=== PATIENT | female | born 1975 | race Caucasian/White ===

== ENCOUNTER 2018-12-22 18:33 | Emergency (ER) | payer MEDICARE, OTHER, SELFPAY ==
[2018-12-22 18:40] VITALS: BP 109/68; PULSE 71; RESP 18; TEMP 36.6; O2SAT 97
--- NOTE | 2018-12-22 18:58 | W.ED.GENAD ---
Discharge Plan Disposition Patient Disposition: HOME Condition: Stable Discharge Details Chief Complaint: FacialProb Clinical Impression: Acute maxillary sinusitis Primary Care Provider: None,None ED Provider: Vinnie Keane Home Meds and New Rx's Prescriptions: New doxycycline hyclate 100 mg capsule 100 mg PO BID 10 Days Qty: 20 RF: 0 Continued rabeprazole [Aciphex] 20 MG tablet,delayed release (DR/EC) 20 mg PO BID Qty: 180 RF: 3 citalopram 20 MG tablet 20 mg PO DAILY Qty: 60 RF: 6 diphenhydramine HCl [Benadryl] 25 mg Capsule 25 mg PO HS RF: 0 vitamin B complex [B Complex 1] Tablet 1 tab PO DAILY RF: 0 Discharge Instructions Instructions: Sinusitis (ED) Additional Instructions: Our care management team will assist you in establishing local primary care. Take antibiotics as prescribed. Do not take at the same time as control/oral contraceptive Return for any acute concerns. May use Tylenol and/or ibuprofen as needed for discomfort. Continue all regular medications Medical Decision Making 43-year-old female states she has a long history of sinus infections for which she has seen otolaryngology in the past and had sinus surgery performed. She is here today with one-week history of bilateral anterior facial pain and pressure with postnasal drip. She is afebrile and well-appearing. Her exam is reassuring. Is consistent with acute sinusitis. I discussed with her that she may have some chronic underlying rhinosinusitis at will minimally respond to antibiotics but there does appear to be significant and acute component. She is here for a number of months while her is away in the service and does not have a local primary care physician. We will ask care management to assist her in setting up a local PMD. Will treat with a course of doxycycline given her allergy profile. HPI General Mode of arrival: ambulatory. Date/Time Provider Initiated Documentation: 12/22/18 18:33. Limitations to Documentation: no limitations. Information obtained by: patient. History of Present Illness 43 year old F presents to the emergency department with the chief complaint of Bilateral sinus pain and pressure with drainage. History of sinus infectio, described as moderate, Quality is described as dull and constant, and is localized to the face. Patient reports no radiation. Patient started experiencing this day(s) and it has been constant. No exacerbating factors reported . Patient notes other (Post nasal drip). Patient did receive the following treatments prior to arrival, none Related Data Home Medications Medication Instructions Recorded Confirmed citalopram 20 mg PO DAILY #60 tab-cap 07/09/15 12/22/18 rabeprazole [Aciphex] 20 mg PO BID #180 tab-cap 07/09/15 12/22/18 diphenhydramine HCl [Benadryl] 25 mg PO HS 12/22/18 12/22/18 doxycycline hyclate 100 mg PO BID 10 Days #20 cap 12/22/18 vitamin B complex [B Complex 1] 1 tab PO DAILY 12/22/18 12/22/18 Previous Rx's Medication Instructions Recorded doxycycline hyclate 100 mg PO BID 10 Days #20 cap 12/22/18 Allergies Allergy/AdvReac Type Severity Reaction Status Date / Time Penicillins Allergy Unverified 12/22/18 18:44 General Stated Complaint: FacialProb STEVE: 4 Review of Systems Review of Systems No fall or trauma, no change to vision. 6 Systems reviewed and otherwise - [facility] Medical History Anemia Chronic endometritis Depression Menorrhagia, premenopausal Secondary female infertility Surgical History Dilation and curettage (05/29/14) Ligation of fallopian tube Family History Mother Essential hypertension Father Retinitis pigmentosa Warner's esophagus Hiatal hernia Sister No problems noted. Brother Retinitis pigmentosa Brother Retinitis pigmentosa Brother No problems noted. Social History Smoking/Tobacco Use Status: Never Drug use: Never Do you feel safe at home: Yes Do you feel safe in your relationship?: Yes Exam Narrative Exam Narrative: GEN: awake, alert, oriented 3. Pleasant, well groomed, interactive. HEAD: Normocephalic, atraumatic ENT: Mucous membranes moist, oropharynx unremarkable, External ear exam unremarkable. Tympanic membranes clear bilaterally. Bilateral maxillary sinus tenderness to percussion EYES: PERRL, EOMI NECK: Full ROM, no MAXWELL, no menigismus CHEST/RESP: Nontender, clear to auscultation bilateral, no wheeze/rhonchi/rales CARDIOVASCULAR: RRR, no murmur, rub celia. 2+ Rad pulse bilateral ABDOMEN: Soft, nontender, no mass. +Bowel sounds EXT: Full ROM, no edema, no rash Neuro: Grossly normal neurologic exam, conversant, interactive. Psych: Speech fluent, thoughts congruent, affect normal Course Vital Signs Temperature 36.6 C 12/22/18 18:40 Pulse 71 12/22/18 18:40 Respiratory Rate 18 12/22/18 18:40 Blood Pressure 109/68 12/22/18 18:40 Pulse Oximetry 97 12/22/18 18:40 Temperature 36.6 C 12/22/18 18:40 Temperature Source Temporal Artery Scan 12/22/18 18:40 Pulse 71 12/22/18 18:40 Respiratory Rate 18 12/22/18 18:40 Respiratory Effort Non-Labored 12/22/18 18:40 Blood Pressure 109/68 12/22/18 18:40 Pulse Oximetry 97 12/22/18 18:40 Oxygen Delivery Method Room Air 12/22/18 18:40 Oxygen Flow Rate 0 12/22/18 18:40 Pain Level 8 12/22/18 18:51
--- NOTE | 2018-12-22 19:02 | ED.GENADUL_ITS ---
Discharge Plan Disposition Patient Disposition: HOME Condition: Stable Discharge Details Chief Complaint: FacialProb Clinical Impression: Acute maxillary sinusitis Primary Care Provider: None,None ED Provider: Vinnie Keane Home Meds and New Rx's Prescriptions: New doxycycline hyclate 100 mg capsule 100 mg PO BID 10 Days Qty: 20 RF: 0 Continued rabeprazole [Aciphex] 20 MG tablet,delayed release (DR/EC) 20 mg PO BID Qty: 180 RF: 3 citalopram 20 MG tablet 20 mg PO DAILY Qty: 60 RF: 6 diphenhydramine HCl [Benadryl] 25 mg Capsule 25 mg PO HS RF: 0 vitamin B complex [B Complex 1] Tablet 1 tab PO DAILY RF: 0 Discharge Instructions Instructions: Sinusitis (ED) Additional Instructions: Our care management team will assist you in establishing local primary care. Take antibiotics as prescribed. Do not take at the same time as control/oral contraceptive Return for any acute concerns. May use Tylenol and/or ibuprofen as needed for discomfort. Continue all regular medications Medical Decision Making 43-year-old female states she has a long history of sinus infections for which she has seen otolaryngology in the past and had sinus surgery performed. She is here today with one-week history of bilateral anterior facial pain and pressure with postnasal drip. She is afebrile and well-appearing. Her exam is reassuring. Is consistent with acute sinusitis. I discussed with her that she may have some chronic underlying rhinosinusitis at will minimally respond to antibiotics but there does appear to be significant and acute component. She is here for a number of months while her is away in the service and does not have a local primary care physician. We will ask care management to assist her in setting up a local PMD. Will treat with a course of doxycycline given her allergy profile. HPI General Mode of arrival: ambulatory . Date/Time Provider Initiated Documentation: 12/22/18 18:33 . Limitations to Documentation: no limitations . Information obtained by: patient . History of Present Illness 43 year old F presents to the emergency department with the chief complaint of Bilateral sinus pain and pressure with drainage. History of sinus infectio, described as moderate, Quality is described as dull and constant, and is localized to the face. Patient reports no radiation. Patient started experiencing this day(s) and it has been constant. No exacerbating factors reported . Patient notes other (Post nasal drip). Patient did receive the following treatments prior to arrival, none Related Data Home Medications Medication Instructions Recorded Confirmed citalopram 20 mg PO DAILY #60 tab-cap 07/09/15 12/22/18 rabeprazole [Aciphex] 20 mg PO BID #180 tab-cap 07/09/15 12/22/18 diphenhydramine HCl [Benadryl] 25 mg PO HS 12/22/18 12/22/18 doxycycline hyclate 100 mg PO BID 10 Days #20 cap 12/22/18 vitamin B complex [B Complex 1] 1 tab PO DAILY 12/22/18 12/22/18 Previous Rx's Medication Instructions Recorded doxycycline hyclate 100 mg PO BID 10 Days #20 cap 12/22/18 Allergies Allergy/AdvReac Type Severity Reaction Status Date / Time Penicillins Allergy Unverified 12/22/18 18:44 General Stated Complaint: FacialProb STEVE: 4 Review of Systems Review of Systems No fall or trauma, no change to vision. 6 Systems reviewed and otherwise - [facility] Medical History Anemia Chronic endometritis Depression Menorrhagia, premenopausal Secondary female infertility Surgical History Dilation and curettage (05/29/14) Ligation of fallopian tube Family History Mother Essential hypertension Father Retinitis pigmentosa Warner's esophagus Hiatal hernia Sister No problems noted. Brother Retinitis pigmentosa Brother Retinitis pigmentosa Brother No problems noted. Social History Smoking/Tobacco Use Status: Never Drug use: Never Do you feel safe at home: Yes Do you feel safe in your relationship?: Yes Exam Narrative Exam Narrative: GEN: awake, alert, oriented 3. Pleasant, well groomed, interactive. HEAD: Normocephalic, atraumatic ENT: Mucous membranes moist, oropharynx unremarkable, External ear exam unre markable. Tympanic membranes clear bilaterally. Bilateral maxillary sinus tenderness to percussion EYES: PERRL, EOMI NECK: Full ROM, no MAXWELL, no menigismus CHEST/RESP: Nontender, clear to auscultation bilateral, no wheeze/rhonchi/rales CARDIOVASCULAR: RRR, no murmur, rub celia. 2+ Rad pulse bilateral ABDOMEN: Soft, nontender, no mass. +Bowel sounds EXT: Full ROM, no edema, no rash Neuro: Grossly normal neurologic exam, conversant, interactive. Psych: Speech fluent, thoughts congruent, affect normal Course Vital Signs Temperature 36.6 C 12/22/18 18:40 Pulse 71 12/22/18 18:40 Respiratory Rate 18 12/22/18 18:40 Blood Pressure 109/68 12/22/18 18:40 Pulse Oximetry 97 12/22/18 18:40 Temperature 36.6 C 12/22/18 18:40 Temperature Source Temporal Artery Scan 12/22/18 18:40 Pulse 71 12/22/18 18:40 Respiratory Rate 18 12/22/18 18:40 Respiratory Effort Non-Labored 12/22/18 18:40 Blood Pressure 109/68 12/22/18 18:40 Pulse Oximetry 97 12/22/18 18:40 Oxygen Delivery Method Room Air 12/22/18 18:40 Oxygen Flow Rate 0 12/22/18 18:40 Pain Level 8 12/22/18 18:51
[2018-12-22] MEDS: Doxycycline Hyclate 100 MG CAP PO (19:18)
--- NOTE | 2018-12-24 09:03 | PDOC.ERCMPRO ---
Care Management Progress Note 12/24-Dr. Keane requested assistance with a PCP f/u in two weeks for sinusitis. Patient also needs to establish care. Reviewed chart and see where Ines Clark is listed as PCP and a note stating that [facility] has her records. Referral faxed to [facility] this morning.
== END 2018-12-22 19:23 | disposition home or self-care (01) ==
LOC: ER 19:03
PROVIDERS: Emergency Provider Emergency Medicine
DX: J01.00 Acute maxillary sinusitis, unspecified (principal)
CPT/HCPCS: 99283

== ENCOUNTER 2019-01-01 08:15 | Emergency (ER) | payer MEDICARE, OTHER, SELFPAY ==
--- NOTE | 2019-01-01 08:21 | W.ED.GENAD ---
Discharge Plan Disposition Patient Disposition: HOME Condition: Stable Discharge Details Chief Complaint: Abd Prob Clinical Impression: Gastritis Primary Care Provider: None,None ED Provider: Justin Giles Home Meds and New Rx's Prescriptions: New sucralfate [Carafate] 1 gram tablet 1 gm PO Q6H Qty: 30 RF: 0 No Action rabeprazole [Aciphex] 20 MG tablet,delayed release (DR/EC) 20 mg PO BID Qty: 180 RF: 3 citalopram 20 MG tablet 20 mg PO DAILY Qty: 60 RF: 6 ranitidine HCl [Zantac] 150 mg Tablet 150 mg PO .QHS RF: 0 dicyclomine 10 mg Capsule 10 mg PO TID PRNRF: 0 diphenhydramine HCl [Benadryl] 25 mg Capsule 25 mg PO HS RF: 0 vitamin B complex [B Complex 1] Tablet 1 tab PO DAILY RF: 0 Discharge Instructions Instructions: Gastritis (ED) Additional Instructions: if you have severe pain or persistent vomit return to the emergeny department. Follow up with your primary care provider a scheduled on 01/04 Medical Decision Making 43 yo female with hx of gerd/gastritis on ppi's and zantac comes in with cc of increased feeling food coming up the esophagus when laying flat and burning sensatinon similar to her prior gerd. She is on doxy for a sinus infection otherwise no new meds. She has a soft abdomen without distention and has no tenderness on exam. States laying flat makes her symptoms worse, denies any pain with exertion, radiation of pain or sob so doubt acs and do not feel w/u indicated. i suspect her sympoms are due to her gerd/gastritis and likely exacerbated by being on doxy. Will add carafate, and she is going to see her new pcp on 01/04. She was given strict return precautions if she has new or worsening pain Differential Diagnosis gerd, gastritis, esophagitis HPI General Mode of arrival: ambulatory. Date/Time Provider Initiated Documentation: 01/01/19 08:21. Limitations to Documentation: no limitations. Information obtained by: patient. History of Present Illness 43 year old F presents to the emergency department with the chief complaint of burping/regurgitating, described as mild, Quality is described as burning, and is localized to the abdomen. Patient reports no radiation. Patient started experiencing this week(s) (1) and it has been constant. No relieving factors improve symptom(s), Other factors that worsen symptoms (laying flat) . Patient notes no other symptoms.. Related Data Home Medications Medication Instructions Recorded Confirmed citalopram 20 mg PO DAILY #60 tab-cap 07/09/15 01/01/19 rabeprazole [Aciphex] 20 mg PO BID #180 tab-cap 07/09/15 01/01/19 diphenhydramine HCl [Benadryl] 25 mg PO HS 12/22/18 01/01/19 vitamin B complex [B Complex 1] 1 tab PO DAILY 12/22/18 01/01/19 dicyclomine 10 mg PO TID PRN 01/01/19 01/01/19 ranitidine HCl [Zantac] 150 mg PO .QHS 01/01/19 01/01/19 sucralfate [Carafate] 1 gm PO Q6H #30 tab 01/01/19 Previous Rx's Medication Instructions Recorded sucralfate [Carafate] 1 gm PO Q6H #30 tab 01/01/19 Allergies Allergy/AdvReac Type Severity Reaction Status Date / Time Penicillins Allergy Unverified 01/01/19 08:28 General STEVE: 4 Review of Systems Review of Systems All systems reviewed & are unremarkable except as noted in HPI and below Constitutional Denies chills, Denies fever(s) and Denies weakness ENT Denies change in voice Cardiovascular Denies chest pain and Denies dyspnea Respiratory Denies cough and Denies dyspnea Gastrointestinal Denies vomiting Integumentary/Breasts Denies rash Neurologic Denies weakness [facility] Medical History Anemia Chronic endometritis Depression Menorrhagia, premenopausal Secondary female infertility Surgical History Dilation and curettage (05/29/14) Ligation of fallopian tube Family History Mother Essential hypertension Father Retinitis pigmentosa Warner's esophagus Hiatal hernia Sister No problems noted. Brother Retinitis pigmentosa Brother Retinitis pigmentosa Brother No problems noted. Social History Smoking/Tobacco Use Status: Never Alcohol Intake: never Drug use: Never Do you feel safe at home: Yes Do you feel safe in your relationship?: Yes Exam Const General: no acute distress Orientation: alert HENMT Head: normal to inspection Ears: external ears normal General nose exam: external nose normal Mouth: moist mucous membranes Eyes General: appearance normal, both eyes and all related structures Neck Neck: normal visual inspection Resp Effort & Inspection: normal respiratory effort and able to speak in complete sentences Cardio Rate: regular rate GI Inspection: normal to inspection Skin General skin exam: no rashes or lesions noted Neuro General: alert and oriented x3 Extrem General: normal to inspection Psych Mental Status: mental status grossly normal
[2019-01-01 08:22] VITALS: BP 114/76; PULSE 78; RESP 16; TEMP 36.4; O2SAT 98
--- NOTE | 2019-01-01 08:40 | ED.GENADUL_ITS ---
Discharge Plan Disposition Patient Disposition: HOME Condition: Stable Discharge Details Chief Complaint: Abd Prob Clinical Impression: Gastritis Primary Care Provider: None,None ED Provider: Justin Giles Home Meds and New Rx's Prescriptions: New sucralfate [Carafate] 1 gram tablet 1 gm PO Q6H Qty: 30 RF: 0 No Action rabeprazole [Aciphex] 20 MG tablet,delayed release (DR/EC) 20 mg PO BID Qty: 180 RF: 3 citalopram 20 MG tablet 20 mg PO DAILY Qty: 60 RF: 6 ranitidine HCl [Zantac] 150 mg Tablet 150 mg PO .QHS RF: 0 dicyclomine 10 mg Capsule 10 mg PO TID PRNRF: 0 diphenhydramine HCl [Benadryl] 25 mg Capsule 25 mg PO HS RF: 0 vitamin B complex [B Complex 1] Tablet 1 tab PO DAILY RF: 0 Discharge Instructions Instructions: Gastritis (ED) Additional Instructions: if you have severe pain or persistent vomit return to the emergeny department. Follow up with your primary care provider a scheduled on 01/04 Medical Decision Making 43 yo female with hx of gerd/gastritis on ppi's and zantac comes in with cc of increased feeling food coming up the esophagus when laying flat and burning sensatinon similar to her prior gerd. She is on doxy for a sinus infection otherwise no new meds. She has a soft abdomen without distention and has no tenderness on exam. States laying flat makes her symptoms worse, denies any pain with exertion, radiation of pain or sob so doubt acs and do not feel w/u indicated. i suspect her sympoms are due to her gerd/gastritis and likely e xacerbated by being on doxy. Will add carafate, and she is going to see her new pcp on 01/04. She was given strict return precautions if she has new or worsening pain Differential Diagnosis gerd, gastritis, esophagitis HPI General Mode of arrival: ambulatory . Date/Time Provider Initiated Documentation: 01/01/19 08:21 . Limitations to Documentation: no limitations . Information obtained by: patient . History of Present Illness 43 year old F presents to the emergency department with the chief complaint of burping/regurgitating, described as mild, Quality is described as burning, and is localized to the abdomen. Patient reports no radiation. Patient started experiencing this week(s) (1) and it has been constant. No relieving factors improve symptom(s), Other factors that worsen symptoms (laying flat) . Patient notes no other symptoms.. Related Data Home Medications Medication Instructions Recorded Confirmed citalopram 20 mg PO DAILY #60 tab-cap 07/09/15 01/01/19 rabeprazole [Aciphex] 20 mg PO BID #180 tab-cap 07/09/15 01/01/19 diphenhydramine HCl [Benadryl] 25 mg PO HS 12/22/18 01/01/19 vitamin B complex [B Complex 1] 1 tab PO DAILY 12/22/18 01/01/19 dicyclomine 10 mg PO TID PRN 01/01/19 01/01/19 ranitidine HCl [Zantac] 150 mg PO .QHS 01/01/19 01/01/19 sucralfate [Carafate] 1 gm PO Q6H #30 tab 01/01/19 Previous Rx's Medication Instructions Recorded sucralfate [Carafate] 1 gm PO Q6H #30 tab 01/01/19 Allergies Allergy/AdvReac Type Severity Reaction Status Date / Time Penicillins Allergy Unverified 01/01/19 08:28 General STEVE: 4 Review of Systems Review of Systems All systems reviewed & are unremarkable except as noted in HPI and below Constitutional Denies chills, Denies fever(s) and Denies weakness ENT Denies change in voice Cardiovascular Denies chest pain and Denies dyspnea Respiratory Denies cough and Denies dyspnea Gastrointestinal Denies vomiting Integumentary/Breasts Denies rash Neurologic Denies weakness [facility] Medical History Anemia Chronic endometritis Depression Menorrhagia, premenopausal Secondary female infertility Surgical History Dilation and curettage (05/29/14) Ligation of fallopian tube Family History Mother Essential hypertension Father Retinitis pigmentosa Warner's esophagus Hiatal hernia Sister No problems noted. Brother Retinitis pigmentosa Brother Retinitis pigmentosa Brother No problems noted. Social History Smoking/Tobacco Use Status: Never Alcohol Intake: never Drug use: Never Do you feel safe at home: Yes Do you feel safe in your relationship?: Yes Exam Const General: no acute distress Orientation: alert HENMT Head: normal to inspection Ears: external ears normal General nose exam: external nose normal Mouth: moist mucous membranes Eyes General: appearance normal, both eyes and all related structures Neck Neck: normal visual inspection Resp Effort & Inspection: normal respiratory effort and able to speak in complete sentences Cardio Rate: regular rate GI Inspection: normal to inspection Skin General skin exam: no rashes or lesions noted Neuro General: alert and oriented x3 Extrem General: normal to inspection Psych Mental Status: mental status grossly normal
== END 2019-01-01 08:49 | disposition home or self-care (01) ==
LOC: ER 08:54
PROVIDERS: Emergency Provider Emergency Medicine
DX: K52.9 Noninfective gastroenteritis and colitis, unspecified (principal)
CPT/HCPCS: 99283

== ENCOUNTER 2019-01-26 16:37 | Emergency (ER) | payer MEDICARE, OTHER, SELFPAY ==
[2019-01-26 16:41] VITALS: BP 123/70; PULSE 71; RESP 20; TEMP 36.6; O2SAT 100
--- NOTE | 2019-01-26 17:05 | W.ED.GENAD ---
Discharge Plan Disposition Patient Disposition: HOME Condition: Fair Discharge Details Chief Complaint: RashLesion Clinical Impression: Cutaneous candidiasis Primary Care Provider: [facility] Provider: Trina Pratt Home Meds and New Rx's Prescriptions: No Action prazosin 2 mg capsule 2 mg PO Q8H Qty: 90 RF: 1 rabeprazole [Aciphex] 20 MG tablet,delayed release (DR/EC) 20 mg PO BID Qty: 180 RF: 3 ranitidine HCl [Zantac] 150 mg Tablet 150 mg PO .QHS RF: 0 dicyclomine 10 mg Capsule 10 mg PO TID PRNRF: 0 vitamin B complex [B Complex 1] Tablet 1 tab PO DAILY RF: 0 buspirone 5 mg Tablet 5 mg PO BID RF: 0 Discharge Instructions Instructions: Skin Yeast Infection (ED) Additional Instructions: Apply Lotrimin 2 times per day to affected area. Please follow-up with primary care in the next 5 to 7 days if not improved. If you develop spreading of the redness, increased pain, fever/chills or other new/worsening symptoms please seek care urgently once again. Discharge Data Discharge Date/Time-TO BE ENTERED AT DEPARTURE: 01/26/19 17:18 Medical Decision Making Patient is a 63-year-old female presents today with chief complaint of bellybutton redness and pain. She reports that symptoms began yesterday. Was recently on antibiotics for sinusitis. Reports that typically she gets Frida infections including oral thrush, vaginal candidiasis as well as cutaneous under her breast after antibiotics. Reports that she did treat the tissue under her breast but has not developed any vaginal or oral symptoms. She was concerned that this may be a staph infection and requested evaluation. On exam, she is a well-circumscribed area of erythema in the early button along with a thin white discharge. Her findings are consistent with cutaneous candidiasis. She typically uses Lotrimin with good results, advised that she may use this again. Advise follow-up with primary care in the next week if not improved. We discussed new/worsening symptoms when to seek care urgently once again. All her questions and concerns were addressed and she is in agreement this plan HPI General Mode of arrival: ambulatory. Date/Time Provider Initiated Documentation: 01/26/19 17:03. Limitations to Documentation: no limitations. Information obtained by: patient and RN notes reviewed. History of Present Illness 43 year old F presents to the emergency department with the chief complaint of erythematous area in umbilicus, described as moderate, with intensity rated at 7. Quality is described as burning, and is localized to the abdomen. Patient reports no radiation. Patient started experiencing this day(s) (1) and it has been constant. No relieving factors improve symptom(s), No exacerbating factors reported . Patient notes no other symptoms.. Patient did receive the following treatments prior to arrival, none Related Data Home Medications Medication Instructions Recorded Confirmed rabeprazole [Aciphex] 20 mg PO BID #180 tab-cap 07/09/15 01/26/19 vitamin B complex [B Complex 1] 1 tab PO DAILY 12/22/18 01/26/19 dicyclomine 10 mg PO TID PRN 01/01/19 01/26/19 ranitidine HCl [Zantac] 150 mg PO .QHS 01/01/19 01/26/19 prazosin 2 mg capsule 2 mg PO Q8H #90 cap 01/16/19 01/26/19 buspirone 5 mg PO BID 01/26/19 01/26/19 Previous Rx's Medication Instructions Recorded prazosin 2 mg capsule 2 mg PO Q8H #90 cap 01/16/19 Allergies Allergy/AdvReac Type Severity Reaction Status Date / Time Penicillins Allergy Unverified 01/01/19 08:28 frida AdvReac Uncoded 01/26/19 16:44 General Stated Complaint: RashLesion STEVE: 5 Review of Systems Constitutional Reports as per HPI, Denies chills and Denies fever(s) ENT Reports as per HPI (denies thrush) Gastrointestinal Denies abdominal pain, Denies change in bowel habits, Denies nausea and Denies vomiting Musculoskeletal Reports as per HPI Integumentary/Breasts Reports as per HPI and Reports erythema Neurologic Reports as per HPI, Denies sensory deficit and Denies paresthesias [facility] Medical History Anemia Chronic endometritis Depression Menorrhagia, premenopausal Secondary female infertility Surgical History Dilation and curettage (05/29/14) Ligation of fallopian tube Social History (Reviewed 01/26/19 @ 22:24 by SONAM Valverde Smoking/Tobacco Use Status: Never Alcohol Intake: never Drug use: Never Do you feel safe at home: Yes Do you feel safe in your relationship?: Yes Exam Const General: cooperative, healthy appearing, comfortable, no acute distress and well developed Nutritional Appearance: average body habitus and well nourished Orientation: alert and awake Resp Effort & Inspection: normal respiratory effort, able to speak in complete sentences and no respiratory distress Cardio Rate: regular rate Rhythm: regular rhythm GI Inspection: normal to inspection and non-distended Palpation: soft, no guarding and nontender Skin General skin exam: erythema (well circumscribed erythema in umbilicus with scant white exudate) Neuro General: alert and awake Cognition: normal cognition Speech: speech normal Gait: normal gait Sensory Exam: no sensory deficits noted Psych Appearance: grossly normal and well kempt Mental Status: mental status grossly normal Speech and Movement: speech and movement normal Course Vital Signs Temperature 36.6 C 01/26/19 16:41 Pulse 71 01/26/19 16:41 Respiratory Rate 20 01/26/19 16:41 Blood Pressure 123/70 01/26/19 16:41 Pulse Oximetry 100 01/26/19 16:41 Temperature 36.6 C 01/26/19 16:41 Temperature Source Temporal Artery Scan 01/26/19 16:41 Pulse 71 01/26/19 16:41 Respiratory Rate 20 01/26/19 16:41 Respiratory Effort Non-Labored 01/26/19 16:41 Blood Pressure 123/70 01/26/19 16:41 Pulse Oximetry 100 01/26/19 16:41 Oxygen Delivery Method Room Air 01/26/19 16:41 Oxygen Flow Rate 0 01/26/19 16:41 Pain Level 7 01/26/19 16:41
--- NOTE | 2019-01-26 17:29 | ED.GENADUL_ITS ---
Discharge Plan Disposition Patient Disposition: HOME Condition: Fair Discharge Details Chief Complaint: RashLesion Clinical Impression: Cutaneous candidiasis Primary Care Provider: [facility] ED Provider: Trina Pratt Home Meds and New Rx's Prescriptions: No Action prazosin 2 mg capsule 2 mg PO Q8H Qty: 90 RF: 1 rabeprazole [Aciphex] 20 MG tablet,delayed release (DR/EC) 20 mg PO BID Qty: 180 RF: 3 ranitidine HCl [Zantac] 150 mg Tablet 150 mg PO .QHS RF: 0 dicyclomine 10 mg Capsule 10 mg PO TID PRNRF: 0 vitamin B complex [B Complex 1] Tablet 1 tab PO DAILY RF: 0 buspirone 5 mg Tablet 5 mg PO BID RF: 0 Discharge Instructions Instructions: Skin Yeast Infection (ED) Additional Instructions: Apply Lotrimin 2 times per day to affected area. Please follow-up with primary care in the next 5 to 7 days if not improved. If you develop spreading of the redness, increased pain, fever/chills or other new/worsening symptoms please seek care urgently once again. Discharge Data Discharge Date/Time-TO BE ENTERED AT DEPARTURE: 01/26/19 17:18 Medical Decision Making Patient is a 63-year-old female presents today with chief complaint of bellybutton redness and pain. She reports that symptoms began yesterday. Was recently on antibiotics for sinusitis. Reports that typically she gets Frida infections including oral thrush, vaginal candidiasis as well as cutaneous under her breast after antibiotics. Reports that she did treat the tissue under her breast but has not developed any vaginal or oral symptoms. She was concerned that this may be a staph infection and requested evaluation. On exam, she is a well-circumscribed area of erythema in the early button along with a thin white discharge. Her findings are consistent with cutaneous candidiasis. She typically uses Lotrimin with good results, advised that she may use this again. Advise follow-up with primary care in the next week if not improved. We discussed new/worsening symptoms when to seek care urgently once again. All her questions and concerns were addressed and she is in agreement this plan HPI General Mode of arrival: ambulatory . Date/Time Provider Initiated Documentation: 01/26/19 17:03 . Limitations to Documentation: no limitations . Information obtained by: patient and RN notes reviewed . History of Present Illness 43 year old F presents to the emergency department with the chief complaint of erythematous area in umbilicus, described as moderate, with intensity rated at 7. Quality is described as burning, and is localized to the abdomen. Patient reports no radiation. Patient started experiencing this day(s) (1) and it has been constant. No relieving factors improve sympt om(s), No exacerbating factors reported . Patient notes no other symptoms.. Patient did receive the following treatments prior to arrival, none Related Data Home Medications Medication Instructions Recorded Confirmed rabeprazole [Aciphex] 20 mg PO BID #180 tab-cap 07/09/15 01/26/19 vitamin B complex [B Complex 1] 1 tab PO DAILY 12/22/18 01/26/19 dicyclomine 10 mg PO TID PRN 01/01/19 01/26/19 ranitidine HCl [Zantac] 150 mg PO .QHS 01/01/19 01/26/19 prazosin 2 mg capsule 2 mg PO Q8H #90 cap 01/16/19 01/26/19 buspirone 5 mg PO BID 01/26/19 01/26/19 Previous Rx's Medication Instructions Recorded prazosin 2 mg capsule 2 mg PO Q8H #90 cap 01/16/19 Allergies Allergy/AdvReac Type Severity Reaction Status Date / Time Penicillins Allergy Unverified 01/01/19 08:28 frida AdvReac Uncoded 01/26/19 16:44 General Stated Complaint: RashLesion STEVE: 5 Review of Systems Constitutional Reports as per HPI, Denies chills and Denies fever(s) ENT Reports as per HPI (denies thrush) Gastrointestinal Denies abdominal pain, Denies change in bowel habits, Denies nausea and Denies vomiting Musculoskeletal Reports as per HPI Integumentary/Breasts Reports as per HPI and Reports erythema Neurologic Reports as per HPI, Denies sensory deficit and Denies paresthesias [facility] History Anemia Chronic endometritis Depression Menorrhagia, premenopausal Secondary female infertility Surgical History Dilation and curettage (05/29/14) Ligation of fallopian tube Social History (Reviewed 01/26/19 @ 22:24 by SONAM Valverde Smoking/Tobacco Use Status: Never Alcohol Intake: never Drug use: Never Do you feel safe at home: Yes Do you feel safe in your relationship?: Yes Exam Const General: cooperative, healthy appearing, comfortable, no acute distress and well developed Nutritional Appearance: average body habitus and well nourished Orientation: alert and awake Resp Effort & Inspection: normal respiratory effort, able to speak in complete sentences and no respiratory distress Cardio Rate: regular rate Rhythm: regular rhythm GI Inspection: normal to inspection and non-distended Palpation: soft, no guarding and nontender Skin General skin exam: erythema (well circumscribed erythema in umbilicus with scant white exudate) Neuro General: alert and awake Cognition: normal cognition Speech: speech normal Gait: normal gait Sensory Exam: no sensory deficits noted Psych Appearance: grossly normal and well kempt Mental Status: mental status grossly normal Speech and Movement: speech and movement normal Course Vital Signs Temperature 36.6 C 01/26/19 16:41 Pulse 71 01/26/19 16:41 Respiratory Rate 20 01/26/19 16:41 Blood Pressure 123/70 01/26/19 16:41 Pulse Oximetry 100 01/26/19 16:41 Temperature 36.6 C 01/26/19 16:41 Temperature Source Temporal Artery Scan 01/26/19 16:41 Pulse 71 01/26/19 16:41 Respiratory Rate 20 01/26/19 16:41 Respiratory Effort Non-Labored 01/26/19 16:41 Blood Pressure 123/70 01/26/19 16:41 Pulse Oximetry 100 01/26/19 16:41 Oxygen Delivery Method Room Air 01/26/19 16:41 Oxygen Flow Rate 0 01/26/19 16:41 Pain Level 7 01/26/19 16:41
== END 2019-01-26 17:18 | disposition home or self-care (01) ==
PROVIDERS: Emergency Provider Physician Assistant
DX: B37.2 Candidiasis of skin and nail (principal)
CPT/HCPCS: 99282

== ENCOUNTER 2019-02-12 17:22 | Outpatient (REF) | payer MEDICARE, OTHER, SELFPAY ==
--- NOTE | 2019-02-12 15:30 | PAPFT_PTH ---
PATIENT: NITHIN CARLIN LOC: [facility] U#:[id number] AGE/SX: 43/F ROOM: RE02/12/[address]: Marilin Santos MD : 1975 BED: DIS: 02/12/2019 SPEC #: [id number] RECD: 02/12/19 18:03 STATUS: ROSI LEDEZMA #: [id number] CONCETTA: 02/12/19 15:[address]: Marilin Santos DEPT: [facility] Cytology RECD BY: Samantha Arambula ENTERED: 02/12/19 18:03 SP TYPE: PAPFT OTHR DR: No Local Tissues: 1 - CX/ENDOCX FOR PAP SMEARS Procedures: PAP THIN PREP/[facility] Screening HPV DNA PROBE Comments: [id number] (CHLAMYDIA/GC)
[2019-02-13 13:11] LABS: Chlamydia Result Negative; GC Result Negative; Specimen Description SEE COMMENTS
== END 2019-02-12 17:42 ==
LOC: LBN 17:22
PROVIDERS: Visit Provider Obstetrics & Gynecology
DX: Z11.3 Encounter for screening for infections with a predominantly sexual mode of transmission (principal); Z12.4 Encounter for screening for malignant neoplasm of cervix; Z11.51 Encounter for screening for human papillomavirus (HPV)
CPT/HCPCS: 87491; 87591; 88142; 87624

== ENCOUNTER 2019-02-13 00:53 | Outpatient (CLI) | payer MEDICARE, OTHER, SELFPAY ==
--- NOTE | 2019-02-13 12:48 | DI.US_ITS ---
SYMPTOMS/DIAGNOSIS: ACUTE LEFT LOWER QUADRANT PAIN, PAIN X 1 MO, S/P APPENDECTOMY, H/O OVARIAN CYSTS, AMENORRHEA SINCE 2014 S/P D & C, ? OVARIAN CYST/TORSION PELVIC ULTRASOUND: A transabdominal and transvaginal examination was carried out. The uterus measures 7.3 cm in length, 2.7 cm in height and 4.2 cm in width with an endometrial stripe thickness of 2.4 mm. The right ovary measures 1.7 x 0.9 x 0.9 cm, the left ovary 2.2 x 1.3 x 1.2 cm. The kidneys are unremarkable. There is no evidence of pelvic free fluid. SUMMARY: There is nothing to suggest ovarian torsion. The examination is within normal limits.
== END 2019-02-13 01:13 ==
PROVIDERS: Visit Provider Obstetrics & Gynecology
DX: R10.2 Pelvic and perineal pain (principal); R10.32 Left lower quadrant pain; Z90.89 Acquired absence of other organs
CPT/HCPCS: 76830; 76856